=== PATIENT | female | born 1955 | race Two or more races ===

== ENCOUNTER 2017-01-02 00:28 | Emergency (ER) | payer MEDICAID, OTHER ==
[~2017-01-02] VITALS: Ht 162.6 cm; Wt 63.5 kg
[~2017-01-02 00:28] MED LIST: LANTUS SOL100 UNIT/1 SUBQ; TRAMADOL HCL50 MG ORAL
[2017-01-02 02:08] LABS: APPEARANCE,URINE CLOUDY; KETONES,URINE NEGATIVE (NEGATIVE); NITRITE,URINE NEGATIVE (NEGATIVE); PH,URINE 5 (4.5-8.0); PROTEIN,URINE 3+ (NEGATIVE); UROBILINOGEN,URINE NORMAL MG/DL (0.0-1.0)
[2017-01-02 02:27] LABS: LEUKOCYTE ESTERASE ,URINE 1+ (NEGATIVE)
[2017-01-02 02:28] LABS: BACTERIA,URINE MODERATE /HPF; SQUAMOUS EPITHELIAL CELL,UR MODERATE /LPF (NONE/OCC)
[2017-01-02 02:29] LABS: AMORPHOUS SEDIMENT,UR MANY /LPF; CALCIUM OXALATE CRYSTALS,UR MANY /LPF
[2017-01-02 03:07] VITALS: BP 130/69
[2017-01-02 03:11] LABS: BASOPHILS % (AUTO) 0.7 % (0.0-2.0); LYMPHOCYTES % (AUTO) 24.7 % (20.0-45.0); MEAN CORPUSCULAR HEMOGLOBIN 30.4 PG (27.0-31.0); MEAN CORPUSCULAR HGB CONC 33.5 G/DL (32.0-36.0); MEAN CORPUSCULAR VOLUME 91 FL (80-99); MEAN PLATELET VOLUME 8.6 FL (6.5-10.1); MONOCYTES % (AUTO) 7.6 % (1.0-10.0); PLATELET COUNT 279 K/UL (150-450); RED BLOOD COUNT 3.39 M/UL (4.20-5.40); RED CELL DISTRIBUTION WIDTH 11.8 % (11.6-14.8)
[2017-01-02 03:27] LABS: ALANINE AMINOTRANSFERASE 10 U/L (3-33); ALBUMIN/GLOBULIN RATIO 0.7 (1.0-2.7); ANION GAP 13 (5-15); ASPARTATE AMINO TRANSFERASE 16 U/L (5-40); CALCIUM 9.3 mg/dL (8.6-10.2); CARBON DIOXIDE 24 mEQ/L (20-30); CHLORIDE 105 mEQ/L (98-107); CREATININE 0.8 mg/dL (0.5-0.9); GLOMERULAR FILTRATION RATE > 60 mL/min (>60); HEMOLYSIS 0; LIPASE 20 U/L (< 60); POTASSIUM 3.5 mEQ/L (3.4-4.9); SODIUM 142 mEQ/L (135-145); TOTAL PROTEIN 7.6 g/dL (6.6-8.7)
[2017-01-02] MEDS ORDERED: cefTRIAXone 1 GM in NS 55 ML IVPB ONE (03:30)
[2017-01-02 04:30] VITALS: BP 119/52
[2017-01-02] MEDS ORDERED: NITROFURANTOIN100 M2 ORAL (04:36)
--- NOTE | 2017-01-02 04:53 | Emergency Room Report ---
History of Present Illness General Chief Complaint: General Complaint Source: Patient Present Illness HPI 61YOF walk-in with "my sugar was 50" when she checked it. Here in ED its 200. Patient is homeless Also c/o pain to left lower leg. Denies trauma. States pain has been intermittent for long time. Otherwise denies chest pain, SOB, abd pain, fever/chills, urinary complaints, headache. Allergies: Coded Allergies: MORPHINE (Unverified Allergy, Unknown, 01/22/16) Uncoded Allergies: MORPHINE (Allergy, Unknown, 01/22/16) Patient History Past Medical History: DM Past Surgical History: none Pertinent Family History: none Social History: Denies: alcohol use, drug use, smoking Last Menstrual Period: unk Now: No Immunizations: UTD Reviewed Nursing Documentation: PMH: Agreed, PSxH: Agreed Nursing Documentation-PMH Past Medical History: No History, Except For Hx Cardiac Problems: Yes - unspecified cardiac Hx Diabetes: Yes Review of Systems All Other Systems: negative except mentioned in HPI Physical Exam Vital Signs Date Time Temp Pulse Resp B/P Pulse Ox O2 Delivery O2 Flow Rate FiO2 01/02/17 00:52 82 15 166/67 100 Room Air Sp02 EP Interpretation: reviewed, abnormal General Appearance: normal inspection, well appearing, no apparent distress, alert, GCS 15, non-toxic, other - Malodorous, disheveled Head: normocephalic, atraumatic Eyes: bilateral eye EOMI, bilateral eye PERRL ENT: normal ENT inspection, hearing grossly normal, normal voice Neck: normal inspection, full range of motion, supple, no bony tend Respiratory: normal inspection, lungs clear, normal breath sounds, no respiratory distress, no retraction, no wheezing Cardiovascular #1: regular rate, rhythm, no edema Gastrointestinal: normal inspection, normal bowel sounds, non tender, soft, no guarding, no hernia Genitourinary: no CVA tenderness Musculoskeletal: normal inspection, back normal, normal range of motion, Brody' s Sign negative Neurologic: normal inspection, alert, responsive, speech normal Psychiatric: normal inspection, judgement/insight normal, mood/affect normal Skin: normal inspection, normal color, other - Bilateral lower extremities with multiple areas of insect bites Lymphatic: normal inspection Medical Decision Making Diagnostic Impression: Primary Impression: UTI (urinary tract infection) Qualified Codes: N30.01 - Acute cystitis with hematuria Additional Impression: Left leg pain ER Course Hypoglycemia - Normal glucose levels here - POC and on CMP - Not in DKA. - Patient has IDDM Left leg pain - Atraumatic - No sign of infection - ROM intact - ?neuropathy from diabetes given chronic nature - Otherwise compartments are soft. No calf swelling to suggest DVT UTI - No leuks. - No other metabolic abnormalities - got empiric dose of Abx here - Rx Macrobid Patient slept all night. Suspect element of malingering for skilled nursing as well DC in AM EKG Diagnostic Results Rate: normal Rhythm: NSR ST Segments: no acute changes ASA given to the pt in ED: No Rhythm Strip Diag. Results EP Interpretation: yes Rate: 73 Rhythm: NSR, no PVC's, no ectopy Last Vital Signs Date Time Temp Pulse Resp B/P Pulse Ox O2 Delivery O2 Flow Rate FiO2 01/02/17 04:30 77 18 119/52 97 Room Air Status: improved Disposition: HOME, SELF-CARE Condition: Improved Scripts Nitrofurantoin Monohyd/M-Cryst* (MACROBID 100 MG*) 100 Mg Capsule 100 MG ORAL EVERY 12 HOURS for 7 Days, #14 CAP Prov: AUTUMN FOUNTAIN M.D. 01/02/17 AUTUMN FOUNTAIN M.D. Jan 02, 2017 04:53
[2017-01-02 06:30] VITALS: BP 123/55
--- NOTE | 2017-01-10 17:35 | Cardiology Report ---
APPROVED REPORT EKG Measurement Heart [id number] IN [id number] [id number] Normal sinus rhythm Normal ECG
== END 2017-01-02 06:30 | disposition home or self-care (01) ==
LOC: EMR 00:45
DX: M79.605 Pain in left leg (principal); N30.01 Acute cystitis with hematuria; Z88.6 Allergy status to analgesic agent; E11.649 Type 2 diabetes mellitus with hypoglycemia without coma; Z59.0 Homelessness
CPT/HCPCS: 36415; 80053; 80300; 81003; 83690; 85025; 87086; 87181; 93005; 96374; 99284; J0696